=== PATIENT | male | born 1950 | race Caucasian/White ===

== ENCOUNTER 2017-08-30 11:16 | Day surgery (SDC) | payer MEDICARE, OTHER ==
[~2017-08-30 11:16] MED LIST: Lactated Ringers 1,000 ML IV SCH; Sodium Chloride 0.9% 10 ML Syringe FLUSH PRN; Sodium Chloride 0.9% 2.5 ML Syringe FLUSH PRN
--- NOTE | 2017-08-30 11:50 | PCM.PREANE ---
Preanesthetic Assessment - Anesthesia/Transfusion/Family Hx Anesthesia History: No Prior Anesthesia Family History of Anesthesia Reaction: No Transfusion History: No Prior Transfusion(s) Intubation History: Unknown - Review of Systems General: No Symptoms Pulmonary: No Symptoms Cardiovascular: No Symptoms Gastrointestinal: No Symptoms, Other (occult blood in feces) Neurological: No Symptoms Other: Reports: None - Physical Assessment Height: 1.78 m Weight: 107.955 kg ASA Class: 2 Mental Status: Alert & Oriented x3 Airway Class: Mallampati = 2 Dentition: Reports: Normal Dentition, Bridge (2 teeth upper front (fixed)) Thyro-Mental Finger Breadths: 2 Mouth Opening Finger Breadths: 3 ROM/Head Extension: Full Lungs: Clear to Auscultation, Normal Respiratory Effort Cardiovascular: Regular Rate, Regular Rhythm - Allergies Allergies/Adverse Reactions: Allergies Allergy/AdvReac Type Severity Reaction Status Date / Time bisoprolol [From Ziac] Allergy Other Verified 08/26/17 09:44 enalaprilat [From Vasotec] Allergy Other Verified 08/26/17 09:44 hydrochlorothiazide Allergy Other Verified 08/26/17 09:44 [From Ziac] - Blood Blood Available: No - Anesthesia Plan Pre-Op Medication Ordered: None - Acknowledgements Anesthesia Type Planned: MAC Pt an Appropriate Candidate for the Planned Anesthesia: Yes Alternatives and Risks of Anesthesia Discussed w Pt/Guardian: Yes Pt/Guardian Understands and Agrees with Anesthesia Plan: Yes PreAnesthesia Questionnaire Other HEENT History: wears glasses Cardiovascular History: Reports: Hypertension Genitourinary History: Reports: BPH Musculoskeletal History: Reports: Fracture Other Musculoskeletal History: hx of fx leg as a child Endocrine/Metabolic History: Reports: Obesity/BMI 30+ - SUBSTANCE USE Smoking Status *Q: Never Smoker Recreational Drug Use History: No - HOME MEDS Home Medications: Home Meds Losartan Potassium 100 mg PO DAILY 08/28/17 [History] amLODIPine Besylate [Amlodipine Besylate] 10 mg PO DAILY 08/28/17 [History] Doxazosin Mesylate [Cardura XL] 4 mg PO DAILY 08/29/17 [History] - CURRENT (IN HOUSE) MEDS Current Meds: Current Medications Lactated Ringer's (Ringers, Lactated) 1,000 mls @ 125 mls/hr IV ASDIRECTED MICHAEL Sodium Chloride (Saline Flush) 10 ml FLUSH ASDIRECTED PRN PRN Reason: Keep Vein Open Sodium Chloride (Saline Flush) 2.5 ml FLUSH ASDIRECTED PRN PRN Reason: Keep Vein Open
[2017-08-30] MEDS ORDERED: Propofol 200 MG/20 ML SDV ONE (11:59)
[2017-08-30] MEDS ORDERED: Lidocaine 2% 5 ML SDV ONE (12:00)
--- NOTE | 2017-08-30 13:42 | PCM.OPNOTE ---
- General Post-Op/Procedure Note Date of Surgery/Procedure: 08/30/17 Operative Procedure(s): Colonoscopy Findings: 3-4 mm polyps in ascending colon, descending colon and 2 mm polyp at splenic flexure Pre Op Diagnosis: positive fecal occult blood test Post-Op Diagnosis: Descending colon polyp, ascending colon polyp and splenic flexure polyp Anesthesia Technique: [facility] [place] Primary Surgeon: Marina Burden Condition: Good
--- NOTE | 2017-08-30 19:55 | OR ---
SURGEON: URSZULA FUCHS MD DATE OF PROCEDURE: 08/30/2017 PREOPERATIVE DIAGNOSIS: Positive fecal occult blood test. POSTOPERATIVE DIAGNOSES: 1. Descending colon polyp. 2. Ascending colon polyp. 3. Splenic flexure polyp. PROCEDURE PERFORMED: Diagnostic colonoscopy. ANESTHESIA: MAC. EXTENT OF EXAM: To the cecum. PREPARATION: Good. LIMITATIONS: None. INDICATION FOR EXAMINATION: The patient is a 67-year-old male, who presents with a positive fecal occult blood test. The patient and I discussed the need for diagnostic colonoscopy. We discussed the procedure, expected perioperative course, and risks including bleeding, infection, or damage to surrounding structures. The patient verbalized understanding and wishes to proceed. PROCEDURE IN DETAIL: The patient was brought to the endoscopy suite and placed in left lateral decubitus position. A time-out was completed verifying the patient's name, age, date of , allergies, and procedure to be performed. Monitored anesthesia care was induced and continuous oxygen was provided via the nasal cannula. After adequate sedation was achieved, a digital rectal exam was performed. This exam was within normal limits. A well lubricated colonoscope was inserted in the rectum and advanced under direct visualization to the level of cecum. The cecum was identified by both visual and anatomic landmarks. Photographs were taken of the cecal cap as well as with the scope in the retroflexed position. The scope was then fully withdrawn while examining the color, texture, anatomy, and integrity of the mucosa from the cecum to the anal canal. The patient was found to have a bulbous appearing polyp in the very proximal ascending colon. This was 3 to 4 mm in size. It was removed using a cold biopsy forceps. I waited 30 seconds after complete polypectomy to examine the area and ensuring hemostasis. Once hemostasis was ensured, I continued the rest of my exam. The patient was noted to have 2 more polyps one at the splenic flexure and one in the descending colon. There were 2 to 3 mm in size, but were similar in appearance to the previous polyp. Both of these removed using cold biopsy forceps and hemostasis was ensured. The scope was then brought into the rectum and retroflexed to allow visualization of the anal canal opening. This appeared normal and a photograph was taken. The scope was then straightened out and removed from the patient. The cecum to anus time was 11 minutes. ENDOSCOPIC DIAGNOSES: 1. Ascending colon polyp. 2. Descending colon polyp. 3. Splenic flexure polyp. RECOMMENDATIONS: Follow up in clinic in 2 weeks. [place] KIM /[id number]
== END 2017-08-30 14:20 | disposition home or self-care (01) ==
LOC: MW.SDS 11:16
PROVIDERS: ATTEND Surgery
DX: D12.2 Benign neoplasm of ascending colon (principal); D12.4 Benign neoplasm of descending colon; K63.5 Polyp of colon; I10 Essential (primary) hypertension; N40.0 Benign prostatic hyperplasia without lower urinary tract symptoms; E66.9 Obesity, unspecified; Z79.899 Other long term (current) drug therapy; Z88.8 Allergy status to other drugs, medicaments and biological substances; Z68.34 Body mass index [BMI] 34.0-34.9, adult
CPT/HCPCS: 45380; 88305; J7120; 00810; J2704

== ENCOUNTER 2023-02-05 22:36 | Observation (INO) | payer MEDICARE, OTHER ==
[2023-02-05] MEDS ORDERED: Iopamidol 755 MG/ML 500 ML Multipack Bottle IVPUSH STA (23:05)
[2023-02-05 23:19] LABS: CARBON DIOXIDE,CO2 31.3 mmol/L (21.0-32.0); POTASSIUM,K 3.9 mmol/L (3.5-5.1)
[2023-02-05] MEDS ORDERED: Dexamethasone 10 MG/ML SDV IVPUSH ONE (23:50)
[2023-02-06] MEDS ORDERED: Acetaminophen 325 MG Tab PO PRN (01:07)
[2023-02-06] MEDS ORDERED: Gadobenate Dimeglumine 529 MG/ML 20 ML SDV IVPUSH STA (07:27)
[2023-02-06] MEDS ORDERED: Sodium Chloride 0.9% 10 ML Syringe FLUSH PRN (08:18)
[2023-02-06] MEDS ORDERED: Ondansetron 4 MG/2 ML SDV IVPUSH PRN (08:18)
[2023-02-06] MEDS ORDERED: Polyethylene Glycol 3350 Powder 17 GM Packet PO PRN (08:18)
[2023-02-06] MEDS ORDERED: Docusate Sodium 100 MG Cap PO PRN (08:18)
[2023-02-06] MEDS ORDERED: Sodium Chloride 0.9% 2.5 ML Syringe FLUSH PRN (08:18)
[2023-02-06] MEDS ORDERED: Losartan 50 MG Tab PO SCH (11:00)
[2023-02-06] MEDS: Iopamidol 755 MG/ML 500 ML Multipack Bottle IVPUSH STA ×2 (11:11→11:12)
[2023-02-06] MEDS ORDERED: Dexamethasone 4 MG Tab PO ONE (14:41)
[2023-02-07] MEDS ORDERED: Levothyroxine 100 MCG Tab PO SCH (07:30)
[2023-02-07] MEDS ORDERED: amLODIPine 5 MG Tab PO SCH (09:00)
[2023-02-07] MEDS ORDERED: Carvedilol 6.25 MG Tab PO SCH (09:00)
== END 2023-02-06 16:10 | disposition home or self-care (01) ==
LOC: MW.ED 22:36 → MW.MS 23:51
PROVIDERS: ADMIT Internal Medicine; ATTEND Internal Medicine
DX: G93.89 Other specified disorders of brain (principal); C73 Malignant neoplasm of thyroid gland; E89.0 Postprocedural hypothyroidism; E66.9 Obesity, unspecified; R53.1 Weakness; I10 Essential (primary) hypertension; R59.0 Localized enlarged lymph nodes; Z68.34 Body mass index [BMI] 34.0-34.9, adult; Z86.73 Personal history of transient ischemic attack (TIA), and cerebral infarction without residual deficits; Z88.8 Allergy status to other drugs, medicaments and biological substances; Z79.899 Other long term (current) drug therapy
CPT/HCPCS: 36415; 70450; 70491; 70496; 70498; 70553; 71260; 74177; 80053; 81003; 82947; 83735; 84484; 85025; 85610; 85730; 93005; 96374; 99285; A9270; A9577; G0378; J1100; J8540; Q9967; 93010; 99284

== ENCOUNTER 2023-03-18 21:02 | Inpatient (IN) | payer MEDICARE, OTHER ==
[2023-03-18] MEDS ORDERED: Sodium Chloride 0.9% 1,000 ML IV ONE (21:05)
[2023-03-18 21:20] LABS: HEMATOCRIT 25.8 % (38.0-50.0); HEMOGLOBIN 8.6 g/dL (13.0-17.0); MEAN CORPUSCULAR HEMOGLOBIN 27.6 pg (27.0-32.0); MEAN CORPUSCULAR HGB CONC 33.3 g/dL (31.0-37.0); MEAN CORPUSCULAR VOLUME 82.7 fL (80.0-98.0); NRBC ABSOLUTE 0 K/uL; NRBC PERCENT 0.9 /100WBC; PLATELET COUNT,PLT 285 K/uL (150-400); RED BLOOD CELL COUNT 3.12 M/uL (4.50-5.90)
[2023-03-18] MEDS ORDERED: Pantoprazole 80 MG in Sodium Chloride 0.9% 10 ML IVPUSH ONE (21:26)
[2023-03-18] MEDS ORDERED: PANTOPRAZOLE IV STA (21:27)
[2023-03-18] MEDS ORDERED: SODIUM CHLORIDE 0.9% IV STA (21:27)
[2023-03-18] MEDS ORDERED: cefTRIAXone 1 GM in Sodium Chloride 0.9% 50 ML IV ONE (21:29)
[2023-03-18 21:34] LABS: INR 1.08 (0.86-1.11); PTT,PARTIAL THROMBOPLSTIN TIME 25.9 SEC (23.9-30.7)
[2023-03-18] MEDS ORDERED: Ondansetron 4 MG/2 ML SDV IVPUSH ONE (21:59)
[2023-03-18] MEDS ORDERED: Morphine 4 MG/ML Syringe IVPUSH ONE (21:59)
[2023-03-18 22:13] LABS: BAND ABSOLUTE MAN 4.2; BAND PERCENT MAN 27 %; LACTIC ACID 1.9 mmol/L (0.4-2.0); LYMPHOCYTES ABSOLUTE MAN 1.4 (0.6-2.4); LYMPHOCYTES PERCENT MAN 9 % (16.0-40.0); METAMYELOCYTE ABSOLUTE MAN 0.3; METAMYELOCYTE PERCENT MAN 2 %; MONOCYTES ABSOLUTE MAN 0.2 (0.0-0.8); MONOCYTES PERCENT MAN 1 % (0.0-15.0); MYELOCYTE ABSOLUTE MAN 0.5; MYELOCYTE PERCENT MAN 3 %; SEG NEUTROPHILS PERCENT MAN 58 % (48.0-80.0)
[2023-03-18 22:16] LABS: A/G RATIO 0.5 (0.9-1.6); ALANINE AMINOTRANSFERASE,ALT 161 IU/L (14-63); ALBUMIN 1.7 g/dL (3.4-5.0); ALKALINE PHOSPHATASE 130 U/L (46-116); ASPARTATE AMNIOTRANSFERASE,AST 108 IU/L (15-37); BILIRUBIN TOTAL 0.4 mg/dL (0.2-1.0); BLOOD UREA NITROGEN,BUN 65 mg/dL (7.0-18.0); CALCIUM 7.4 mg/dL (8.5-10.1); CARBON DIOXIDE,CO2 27.9 mmol/L (21.0-32.0); CHLORIDE,CL 95 mmol/L (98-107); CREATININE 2.6 mg/dL (0.8-1.3); GLUCOSE RANDOM 91 mg/dL (74-106); LIPASE 93 U/L (73-393); MAGNESIUM 2.3 mg/dL (1.8-2.4); POTASSIUM,K 5.1 mmol/L (3.5-5.1); PROTEIN TOTAL,TP 5.3 g/dL (6.4-8.2); SODIUM,NA 133 mmol/L (136-148); TSH ULTRASENSITIVE 1.42 uIU/mL (0.36-3.74)
[2023-03-18 22:17] LABS: ESTIMATED GFR 25 mL/min (>60)
[2023-03-18] MEDS ORDERED: Norepinephrine Bit/D5W Premix 250 ML IV SCH (23:45)
[2023-03-19] MEDS ORDERED: Sodium Chloride 0.9% 1,000 ML IV STA (00:10)
[2023-03-19] MEDS ORDERED: metroNIDAZOLE/Normal Saline 500 MG in Premix Bag 1 BAG IV ONE (01:15)
[2023-03-19] MEDS ORDERED: LORazepam 2 MG/ML SDV IVPUSH ONE ×2 (02:22→03:22)
[2023-03-19] MEDS ORDERED: Morphine 4 MG/ML Syringe IVPUSH ONE ×2 (02:22→02:30)
[2023-03-19] MEDS ORDERED: Morphine 2 MG/ML SYRINGE IVPUSH PRN (03:23)
[2023-03-19] MEDS ORDERED: LORazepam 2 MG/ML SDV IVPUSH PRN (03:24)
[2023-03-19] MEDS: Morphine 2 MG/ML SYRINGE IVPUSH PRN ×6 (04:22→10:18)
[2023-03-19] MEDS ORDERED: Morphine 2 MG/ML SYRINGE IVPUSH SCH (04:30)
== END 2023-03-19 12:45 | disposition expired | DRG 951 ==
LOC: MW.ED 21:02 → MW.MS 03-19 05:30
PROVIDERS: ADMIT Internal Medicine; ATTEND Internal Medicine
PROC: 05HN33Z Insertion of Infusion Device into Left Internal Jugular Vein, Percutaneous Approach (ICD-10-PCS; principal; 2023-03-18)
DX: Z51.5 Encounter for palliative care (principal); K63.1 Perforation of intestine (nontraumatic); C79.9 Secondary malignant neoplasm of unspecified site; C79.31 Secondary malignant neoplasm of brain; K92.2 Gastrointestinal hemorrhage, unspecified; Z66 Do not resuscitate; K59.00 Constipation, unspecified; C73 Malignant neoplasm of thyroid gland; I10 Essential (primary) hypertension; N40.0 Benign prostatic hyperplasia without lower urinary tract symptoms; H54.7 Unspecified visual loss; E66.9 Obesity, unspecified; Z88.8 Allergy status to other drugs, medicaments and biological substances; Z79.899 Other long term (current) drug therapy; Z98.890 Other specified postprocedural states
CPT/HCPCS: 36415; 36430; 36556; 51702; 70450; 70450-26; 71045; 71045-26; 74176; 74176-26; 80053; 83605; 83690; 83735; 83880; 84443; 84484; 85025; 85610; 85730; 86850; 86900; 86901; 86920; 87040; 93005; 96361; 96365; 96366; 96367; 96368; 96375; 96376; 99285-25; 99291; C9113; J0696; J2060; J2270; J2405; J3490; J7030; J7040; P9016